=== PATIENT | male | born 1975 | race African-American/Black ===

== ENCOUNTER 2023-11-25 12:09 | Emergency (ER) | payer MEDICAID ==
[~2023-11-25] VITALS: Ht 182.9 cm; Wt 109.8 kg
[2023-11-25 12:12] VITALS: BP 145/80; PULSE 70; TEMP 98.3; O2SAT 100
[2023-11-25] MEDS ORDERED: CYCL10TA21 MT (12:45)
[2023-11-25] MEDS ORDERED: NAPR-1176 MT (12:45)
[2023-11-25 13:07] VITALS: RESP 16
== END 2023-11-25 13:11 | disposition home or self-care (01) ==
LOC: ER 12:09
DX: S16.1XXA Strain of muscle, fascia and tendon at neck level, initial encounter (principal); E11.9 Type 2 diabetes mellitus without complications; X58.XXXA Exposure to other specified factors, initial encounter; Y93.89 Activity, other specified; Y92.89 Other specified places as the place of occurrence of the external cause; Y99.8 Other external cause status
CPT/HCPCS: 99281; 99283